=== PATIENT | female | born 1955 | race Two or more races ===

== ENCOUNTER → 2024-12-06 | Outpatient (CLI) | payer MEDICARE, SELFPAY ==
--- NOTE | 2024-12-06 11:30 | XR_ITS ---
Examination: Abdomen sonogram, Limited Date and time of exam: December 06, 2024 1129 hours INDICATIONS: Diagnosis cirrhosis 3 years ago distended abdomen one year Technique: Real-time crockett scale transabdominal sonographic images of the upper abdomen obtained. Findings: Absent gallbladder Normal common bile duct 0.3 cm Pancreatic head 2.4 cm Liver 13 cm irregular contour fatty infiltration Moderate ascites Normal hepatopedal portal venous flow Patent IVC IMPRESSION: Absent gallbladder Normal common bile duct Cirrhosis fatty liver no focal liver lesions Moderate ascites
== END | disposition home or self-care (01) ==
PROVIDERS: Referring Provider Internal Medicine Gastroenterology; Visit Provider Internal Medicine Gastroenterology
DX: K70.31 Alcoholic cirrhosis of liver with ascites (principal)
CPT/HCPCS: 76705